=== PATIENT | male | born 1945 | race Caucasian/White ===

== ENCOUNTER 2016-08-27 23:28 | Emergency (ER) | payer OTHER ==
[2016-08-28] MEDS ORDERED: CARB1TAB44 PO (00:13)
[2016-08-28] MEDS ORDERED: SENN8.6T15 PO (00:13)
[2016-08-28] MEDS ORDERED: GALA24CA PO (00:13)
[2016-08-28] MEDS ORDERED: ALL100T PO (00:13)
[2016-08-28] MEDS ORDERED: ASPI-498 OR (00:13)
[2016-08-28] MEDS ORDERED: OME20T PO (00:13)
[2016-08-28] MEDS ORDERED: ATOR40TA52 PO (00:13)
[2016-08-28] MEDS ORDERED: RASA1TAB PO (00:13)
[2016-08-28] MEDS ORDERED: OMEG300C7 OR (00:13)
[2016-08-28] MEDS ORDERED: MEMA1TAB2 PO (00:13)
[2016-08-28 00:33] LABS: Basophils # (auto) 0 uL; Basophils % (auto) 0.6 % (0.0-2.0); Eosinophils # (auto) 0 uL; Eosinophils % (auto) 0.4 % (0.0-7.0); Hematocrit 40.4 % (41.0-53.0); Hemoglobin 13.1 g/dL (13.5-17.5); Lymphocytes # (auto) 0.5 uL; Lymphocytes % (auto) 7.5 % (10.0-50.0); Mean Corpuscular Hemoglobin 32.1 pg (28.0-32.0); Mean Corpuscular Hgb Conc. 32.5 g/dL (32.0-36.0); Mean Corpuscular Volume 98.7 fL (80.0-100.0); Mean Platelet Volume 8.4 fL (7.4-10.4); Monocytes # (auto) 0.3 uL; Monocytes % (auto) 4.5 % (0.0-12.0); Neutrophils # (auto) 5.4 uL; Platelet Count (auto) 165 10^3/uL (140-450); Red Cell Distribution Width 13.6 % (11.6-16.0); White Blood Cell 6.2 10^3/uL (4.4-10.8)
[2016-08-28 00:46] LABS: Albumin 3.6 g/dL (3.4-5.0); BUN/Creatinine Ratio 24.7; Calcium 8.5 mg/dL (8.5-10.1); Magnesium 2.2 mg/dL (1.6-2.6); Potassium 4.5 mmol/L (3.5-5.1)
[2016-08-28 00:49] LABS: Bilirubin, Total 0.3 mg/dL (0.2-1.0); Total Protein 7.1 g/dL (6.4-8.2)
[2016-08-28 00:54] LABS: INR 0.97 (0.9-1.15); Partial Thromboplastin Time 25.4 sec (22.64-33.71)
[2016-08-28 04:39] LABS: B-Type Natriuretic Peptide 74.09 pg/mL (0-100)
[2016-08-28 04:40] LABS: Temperature: 22.7 C (20.0-25.0)
[2016-08-28 05:06] VITALS: BP 117/61
== END 2016-08-28 06:02 | disposition home or self-care (01) ==
LOC: ER 23:33
DX: J44.1 Chronic obstructive pulmonary disease with (acute) exacerbation (principal); R14.0 Abdominal distension (gaseous); J98.11 Atelectasis; Z86.73 Personal history of transient ischemic attack (TIA), and cerebral infarction without residual deficits; I10 Essential (primary) hypertension; I25.2 Old myocardial infarction; Z95.1 Presence of aortocoronary bypass graft
CPT/HCPCS: 36415; 71010; 80053; 83735; 83880; 84484; 85025; 85379; 85610; 85730; 93005; 94761; 99285; J7030

== ENCOUNTER 2016-08-28 16:08 | Inpatient (IN) | payer OTHER ==
[~2016-08-28] VITALS: Ht 182.9 cm; Wt 78.6 kg
[~2016-08-28 16:08] MED LIST: ALL100T PO; ASPI-498 OR; ATOR40TA52 PO; CARB1TAB44 PO; GALA24CA PO; MEMA1TAB2 PO; OME20T PO; OMEG300C7 OR; RASA1TAB PO; SENN8.6T15 PO
[2016-08-28] MEDS ORDERED: SODIUM CHLORIDE 0.9% 1,000 ML IV ONE (16:33)
[2016-08-28 17:05] LABS: Basophils # (auto) 0 uL; Eosinophils # (auto) 0 uL; Hematocrit 39.3 % (41.0-53.0); Hemoglobin 12.7 g/dL (13.5-17.5); Lymphocytes # (auto) 0.3 uL; Mean Corpuscular Hemoglobin 31.9 pg (28.0-32.0); Mean Corpuscular Hgb Conc. 32.3 g/dL (32.0-36.0); Mean Corpuscular Volume 98.9 fL (80.0-100.0); Monocytes # (auto) 0.3 uL; Monocytes % (auto) 3.4 % (0.0-12.0); Neutrophils # (auto) 8.7 uL; Neutrophils % (auto) 93.6 % (37.0-80.0); Platelet Count (auto) 176 10^3/uL (140-450); Red Cell Distribution Width 14.8 % (11.6-16.0); White Blood Cell 9.3 10^3/uL (4.4-10.8)
[2016-08-28 17:18] LABS: Albumin 3.3 g/dL (3.4-5.0); BUN/Creatinine Ratio 20.6; Calcium 8.5 mg/dL (8.5-10.1); Potassium 4.4 mmol/L (3.5-5.1)
[2016-08-28 17:21] LABS: Bilirubin, Total 0.4 mg/dL (0.2-1.0); Total Protein 6.5 g/dL (6.4-8.2)
[2016-08-28 17:27] LABS: B-Type Natriuretic Peptide 73.93 pg/mL (0-100)
[2016-08-28 17:44] LABS: Temperature: 22.3 C (20.0-25.0)
[2016-08-28] MEDS ORDERED: ENOXAPARIN SOD 80 MG/0.8ML SYRINGE SC ONE (17:45)
[2016-08-28 18:28] LABS: INR 1.04 (0.9-1.15); Prothrombin Time 10.7 sec (9.37-12.3)
[2016-08-28 21:17] LABS: Urine Bilirubin Negative (Negative); Urine Color PINK (Yellow); Urine Glucose Normal (Normal); Urine Ketone TRACE (Negative); Urine Mucus FEW (None Seen); Urine Nitrite Negative (Negative); Urine RBC 953 /hpf (0 - 3); Urine Urobilinogen Normal (Negative); Urine pH 5.5 (5.0-8.0)
[2016-08-28 21:20] LABS: Urine Blood 3+ /uL (Negative)
[2016-08-28] MEDS ORDERED: TEMAZEPAM 15 MG CAP PO PRN (21:45)
[2016-08-28] MEDS ORDERED: DOCUSATE SOD 100 MG CAP PO PRN (21:45)
[2016-08-28] MEDS ORDERED: cefTRIAXone 1GM/50ML D5W 50 ML IV ONE (21:45)
[2016-08-28] MEDS ORDERED: ONDANSETRON HCL 4 MG/2 ML VIAL IV PRN (21:45)
[2016-08-28] MEDS: SODIUM CHLORIDE 0.9% 1,000 ML IV SCH (21:45)
[2016-08-28] MEDS ORDERED: ACETAMINOPHEN 325 MG TAB PO PRN (21:45)
[2016-08-28] MEDS ORDERED: HYDROcodone-ACET 5/325MG TAB PO PRN (21:45)
[2016-08-28 22:44] VITALS: BP_SYST 80
[2016-08-28] MEDS: FAMOTIDINE 20 MG TAB PO SCH (22:54)
[2016-08-28] MEDS: MEMANTINE HCL 5 MG TAB PO SCH (22:54)
[2016-08-28] MEDS: ATORVASTATIN 20 MG TAB PO SCH (22:54)
[2016-08-28 23:17] VITALS: BP 83/45
[2016-08-29] VITALS: BP 80/53
[2016-08-29] MEDS ORDERED: ALBUMIN 5% 250 ML IV ONE (01:30)
[2016-08-29] MEDS ORDERED: CLOPIDOGREL BISULFATE 75 MG TAB PO ONE (02:00)
[2016-08-29 05:00] VITALS: BP 97/63
[2016-08-29 05:44] LABS: Albumin 2.9 g/dL (3.4-5.0); Calcium 8.2 mg/dL (8.5-10.1)
[2016-08-29 05:50] LABS: Basophils # (auto) 0 uL; Basophils % (auto) 0.1 % (0.0-2.0); Eosinophils # (auto) 0 uL; Eosinophils % (auto) 0.1 % (0.0-7.0); Hematocrit 31.7 % (41.0-53.0); Hemoglobin 10.6 g/dL (13.5-17.5); Lymphocytes # (auto) 0.5 uL; Lymphocytes % (auto) 8.7 % (10.0-50.0); Mean Corpuscular Hemoglobin 32.8 pg (28.0-32.0); Mean Corpuscular Hgb Conc. 33.3 g/dL (32.0-36.0); Mean Corpuscular Volume 98.5 fL (80.0-100.0); Mean Platelet Volume 9.2 fL (7.4-10.4); Monocytes # (auto) 0.2 uL; Monocytes % (auto) 3.3 % (0.0-12.0); Neutrophils % (auto) 87.8 % (37.0-80.0); Platelet Count (auto) 115 10^3/uL (140-450); SUSPECT VIEW TRANSMISSION; White Blood Cell 5.7 10^3/uL (4.4-10.8)
[2016-08-29 05:51] LABS: BUN/Creatinine Ratio 29.5; Bilirubin, Total 0.4 mg/dL (0.2-1.0); Total Protein 5.5 g/dL (6.4-8.2)
[2016-08-29] MEDS: cefTRIAXone 1GM/50ML D5W 50 ML IV SCH (09:25)
[2016-08-29 09:35] VITALS: BP 120/51
[2016-08-29] MEDS ORDERED: ASPirin 81 mg TAB PO SCH (10:00)
[2016-08-29] MEDS ORDERED: ENOXAPARIN SOD 100 MG/1 ML SYRINGE SC SCH (10:00)
[2016-08-29] MEDS ORDERED: ENOXAPARIN SOD 30 MG/0.3 ML SYRINGE SC SCH (10:00)
[2016-08-29 12:00] VITALS: BP 107/59
[2016-08-29] MEDS: ENOXAPARIN SOD 60 MG/0.6 ML SYRINGE SC SCH ×2 (12:25→22:26)
[2016-08-29] MEDS: ALLOPURINOL 100 MG TAB PO SCH (12:25)
[2016-08-29] MEDS: MEMANTINE HCL 5 MG TAB PO SCH ×2 (12:26→22:26)
[2016-08-29] MEDS: CLOPIDOGREL BISULFATE 75 MG TAB PO SCH (12:26)
[2016-08-29] MEDS: FAMOTIDINE 20 MG TAB PO SCH ×2 (12:33→22:26)
[2016-08-29] MEDS: SODIUM CHLORIDE 0.9% 1,000 ML IV SCH (14:25)
[2016-08-29 16:00] VITALS: BP 86/41
[2016-08-29] MEDS ORDERED: LEVODOPA PO SCH (18:30)
[2016-08-29] MEDS ORDERED: CARBIDOPA PO SCH (18:30)
[2016-08-29] MEDS: LEVODOPA PO SCH (18:31)
[2016-08-29] MEDS: CARBIDOPA PO SCH (18:31)
[2016-08-29 20:59] VITALS: BP 115/68
[2016-08-29] MEDS: BACITRACIN TOP OINT 1 UD PKG TOP SCH (22:00)
[2016-08-29] MEDS: ATORVASTATIN 20 MG TAB PO SCH (22:26)
[2016-08-30 04:49] VITALS: BP 112/71
[2016-08-30 06:32] LABS: Basophils # (auto) 0 uL; Eosinophils # (auto) 0 uL; Eosinophils % (auto) 0.1 % (0.0-7.0); Hematocrit 32.2 % (41.0-53.0); Hemoglobin 10.4 g/dL (13.5-17.5); Lymphocytes # (auto) 0.3 uL; Lymphocytes % (auto) 6.2 % (10.0-50.0); Mean Corpuscular Hgb Conc. 32.4 g/dL (32.0-36.0); Mean Corpuscular Volume 98.8 fL (80.0-100.0); Mean Platelet Volume 8.8 fL (7.4-10.4); Monocytes # (auto) 0.2 uL; Monocytes % (auto) 3.7 % (0.0-12.0); Platelet Count (auto) 143 10^3/uL (140-450); Red Cell Distribution Width 14.6 % (11.6-16.0); White Blood Cell 4.4 10^3/uL (4.4-10.8)
[2016-08-30 06:52] LABS: BUN/Creatinine Ratio 26.4; Calcium 8.5 mg/dL (8.5-10.1); Potassium 4.2 mmol/L (3.5-5.1); Uric Acid 4.6 mg/dL (3.5-7.2)
[2016-08-30] MEDS: SODIUM CHLORIDE 0.9% 1,000 ML IV SCH ×2 (07:05→23:50)
[2016-08-30] MEDS: CARBIDOPA PO SCH ×3 (08:00→17:43)
[2016-08-30] MEDS: LEVODOPA PO SCH ×3 (08:00→17:43)
[2016-08-30 09:00] VITALS: BP 108/74
[2016-08-30] MEDS: cefTRIAXone 1GM/50ML D5W 50 ML IV SCH (09:11)
[2016-08-30] MEDS: CLOPIDOGREL BISULFATE 75 MG TAB PO SCH (10:00)
[2016-08-30] MEDS: FAMOTIDINE 20 MG TAB PO SCH ×2 (10:35→23:36)
[2016-08-30] MEDS: ALLOPURINOL 100 MG TAB PO SCH (10:35)
[2016-08-30] MEDS: BACITRACIN TOP OINT 1 UD PKG TOP SCH ×2 (10:35→22:00)
[2016-08-30] MEDS: MEMANTINE HCL 5 MG TAB PO SCH ×2 (10:36→23:36)
[2016-08-30 13:00] VITALS: BP 106/68
[2016-08-30 17:00] VITALS: BP 101/57
[2016-08-30 21:07] VITALS: BP 108/52
[2016-08-30] MEDS: ATORVASTATIN 20 MG TAB PO SCH (23:35)
[2016-08-31 04:49] VITALS: BP 101/56
[2016-08-31 05:42] LABS: Basophils # (auto) 0 uL; Basophils % (auto) 0.4 % (0.0-2.0); Eosinophils # (auto) 0 uL; Eosinophils % (auto) 0.6 % (0.0-7.0); Hemoglobin 9.9 g/dL (13.5-17.5); Lymphocytes # (auto) 0.4 uL; Lymphocytes % (auto) 14.1 % (10.0-50.0); Mean Corpuscular Hemoglobin 32.2 pg (28.0-32.0); Mean Corpuscular Volume 97.6 fL (80.0-100.0); Mean Platelet Volume 8.3 fL (7.4-10.4); Monocytes # (auto) 0.3 uL; Monocytes % (auto) 9.3 % (0.0-12.0); Neutrophils # (auto) 2.3 uL; Neutrophils % (auto) 75.6 % (37.0-80.0); Platelet Count (auto) 152 10^3/uL (140-450); Red Cell Distribution Width 14.8 % (11.6-16.0)
[2016-08-31 06:21] LABS: BUN/Creatinine Ratio 26.7; Calcium 8.3 mg/dL (8.5-10.1); Magnesium 1.9 mg/dL (1.6-2.6); Potassium 3.8 mmol/L (3.5-5.1)
[2016-08-31 08:57] LABS: Urine Bilirubin Negative (Negative); Urine Color Colorless (Yellow); Urine Glucose Normal (Normal); Urine Ketone Negative (Negative); Urine Nitrite Negative (Negative); Urine RBC 18 /hpf (0 - 3); Urine Urobilinogen Normal (Negative)
[2016-08-31 08:58] LABS: Urine Blood 2+ /uL (Negative)
[2016-08-31] MEDS ORDERED: GALA24CA PO (09:09)
[2016-08-31 09:39] VITALS: BP 93/61
[2016-08-31] MEDS: ALLOPURINOL 100 MG TAB PO SCH (10:13)
[2016-08-31] MEDS: MEMANTINE HCL 5 MG TAB PO SCH (10:13)
[2016-08-31] MEDS: CLOPIDOGREL BISULFATE 75 MG TAB PO SCH (10:13)
[2016-08-31] MEDS: cefTRIAXone 1GM/50ML D5W 50 ML IV SCH (10:14)
[2016-08-31] MEDS: LEVODOPA PO SCH ×3 (10:14→17:33)
[2016-08-31] MEDS: CARBIDOPA PO SCH ×3 (10:14→17:33)
[2016-08-31] MEDS: FAMOTIDINE 20 MG TAB PO SCH (10:14)
[2016-08-31] MEDS: BACITRACIN TOP OINT 1 UD PKG TOP SCH (10:15)
[2016-08-31 14:02] VITALS: BP 97/66
[2016-08-31 16:21] VITALS: BP 97/66
[2016-08-31 16:30] VITALS: BP 101/64
== END 2016-08-31 17:30 | disposition home or self-care (01) | DRG 280 ==
LOC: ER 16:11 → OVERFLOW 16:12 → EAST 22:50
PROVIDERS: ADMIT Internal Medicine; ATTEND Internal Medicine
DX: I21.4 Non-ST elevation (NSTEMI) myocardial infarction (principal); E43 Unspecified severe protein-calorie malnutrition; N39.0 Urinary tract infection, site not specified; I13.0 Hypertensive heart and chronic kidney disease with heart failure and stage 1 through stage 4 chronic kidney disease, or unspecified chronic kidney disease; N17.9 Acute kidney failure, unspecified; E86.0 Dehydration; F02.80 Dementia in other diseases classified elsewhere, unspecified severity, without behavioral disturbance, psychotic disturbance, mood disturbance, and anxiety; G30.9 Alzheimer's disease, unspecified; I25.10 Atherosclerotic heart disease of native coronary artery without angina pectoris; I50.9 Heart failure, unspecified; N18.3 Chronic kidney disease, stage 3 (moderate); G20 Parkinson's disease; H57.8 Other specified disorders of eye and adnexa; Z95.1 Presence of aortocoronary bypass graft; Z85.51 Personal history of malignant neoplasm of bladder; Z79.899 Other long term (current) drug therapy; I25.2 Old myocardial infarction; Z79.82 Long term (current) use of aspirin; Z68.23 Body mass index [BMI] 23.0-23.9, adult
CPT/HCPCS: 36415; 51702; 70450; 70480; 71250; 74176; 80048; 80053; 81001; 82570; 82962; 83735; 83880; 84156; 84300; 84443; 84484; 84550; 85025; 85610; 87086; 93005; 96361; 96365; 96372; J0696